=== PATIENT | male | born 1980 ===

== ENCOUNTER 2022-02-05 07:05 | Day surgery (SDC) | payer BC ==
[~2022-02-05 07:05] MED LIST: Lactated Ringers 1,000 ML IV SCH; Lidocaine 1% 5 ML VIAL ONE; Lidocaine 1%/Sod Bicarbonate in NS 8.4% 1 ML Syringe IDERM PRN; Midazolam 1 MG/ML 2 ML SDV ONE; Propofol 200 MG/20 ML SDV ONE; Sodium Chloride 0.9% 10 ML Syringe FLUSH PRN; Sodium Chloride 0.9% 10 ML Syringe FLUSH SCH; fentaNYL 100 MCG/2 ML SDV ONE
[2022-02-05] MEDS ORDERED: Lidocaine 1% with EPINEPHrine 1:100,000 20 ML MDV ONE (07:29)
[2022-02-05] MEDS ORDERED: Bupivacaine 0.5%/EPINEPHrine 1:200,000 50 ML MDV ONE (07:29)
[2022-02-05] MEDS ORDERED: Bacitracin Oint 15 GM Tube ONE (07:30)
[2022-02-05] MEDS ORDERED: HYDROmorphone 0.5 MG/0.5 ML Syringe IVPUSH PRN (07:37)
[2022-02-05] MEDS ORDERED: Ondansetron 4 MG/2 ML SDV IVPUSH PRN (07:37)
[2022-02-05] MEDS ORDERED: fentaNYL 100 MCG/2 ML SDV IVPUSH PRN (07:37)
[2022-02-05 09:23] VITALS: BP 113/89; PULSE 88
== END 2022-02-05 09:20 | disposition home or self-care (01) ==
LOC: JD.SDS 07:05
PROVIDERS: ATTEND Surgery
DX: K57.31 Diverticulosis of large intestine without perforation or abscess with bleeding (principal); K64.4 Residual hemorrhoidal skin tags; F17.210 Nicotine dependence, cigarettes, uncomplicated; F32.A Depression, unspecified; Z79.899 Other long term (current) drug therapy; Z98.890 Other specified postprocedural states
CPT/HCPCS: 45378; 46230; A9270; J2250; J2704; J3010; J3490; J7120